=== PATIENT | male | born 1975 | race Caucasian/White ===

== ENCOUNTER 2021-08-18 13:23 | Emergency (ER) | payer OTHER ==
[2021-08-18 17:39] LABS: BASOPHIL 0.5 % (0-2); EOSINOPHIL 1.6 % (0-5); HCT 39.8 % (42.0-52.0); HGB 13.6 g/dl (13.2-18.0); LYMPHOCYTE 24.6 % (15-48); MCH 36.9 pg (25.0-31.0); MCHC 34.2 g/dL (32.0-36.0); MCV 107.9 fL (78.0-100.0); MONOCYTE 8.2 % (0-12); MPV 10.8 fL (6.0-9.5); NEUTROPHIL 64.8 % (41-80); NRBC 0; PLT 107 K/uL (150-400); RBC 3.69 M/uL (4.70-6.00); RDW 12.9 % (11.5-14.0); WBC 5.7 K/uL (4.0-10.5)
[2021-08-18 18:02] LABS: ALBUMIN 2.7 g/dL (3.4-5.0); BILIRUBIN - TOTAL 5.8 mg/dL (0.2-1.0); BUN/CREAT RATIO (CALC) 13.3 RATIO; CREATININE 0.3 mg/dL (0.67-1.17); GLOBULIN (CALCULATION) 5.3 g/dL; POTASSIUM 3.5 mmol/L (3.5-5.1)
[2021-08-18 20:16] LABS: INR 1.39 (0.9-1.2); PROTHROMBIN TIME 16.4 SECONDS (11.8-13.4); PTT 33.4 SECONDS (24.4-34.7)
[2021-08-18 21:28] LABS: BILIRUBIN 1+ mg/dL (NEGATIVE); BLOOD TRACE-INTACT Ery/uL (NEGATIVE); CLARITY CLEAR (CLEAR); COLOR YELLOW (YELLOW); GLUCOSE (U) 3+ mg/dL (NORMAL); LEUKOCYTES NEGATIVE Leu/uL (NEGATIVE); NITRITE NEGATIVE (NEGATIVE); PROTEIN NEGATIVE (NEGATIVE); pH 7.5 (5.0-9.0)
[2021-08-18 21:44] LABS: BACTERIA TRACE; SQUAMOUS EPITHELIAL CELLS RARE; URINARY RBC RARE; URINARY WBC RARE
[2021-08-18 23:10] LABS: HCT 34.7 % (42.0-52.0)
[2021-08-19 05:40] LABS: HCT 34.3 % (42.0-52.0); HGB 11.7 g/dL (13.2-18.0)
[2021-08-19] MEDS ORDERED: ZOFRAN4 M1 PO (09:17)
[2021-08-19] MEDS ORDERED: NORCO 5-325 TA1 EACH PO (09:17)
[2021-08-19] MEDS ORDERED: LIDOCAINE 5% P1 EACH TOP (09:21)
== END 2021-08-19 05:42 | disposition home or self-care (01) ==
LOC: FER 13:23
PROVIDERS: Nurse Practitioner Family
DX: S22.42XA Multiple fractures of ribs, left side, initial encounter for closed fracture (principal); K66.1 Hemoperitoneum; E11.9 Type 2 diabetes mellitus without complications; I10 Essential (primary) hypertension; F17.210 Nicotine dependence, cigarettes, uncomplicated; Z20.822 Contact with and (suspected) exposure to COVID-19; V00-Y99 External causes of morbidity
CPT/HCPCS: 36415; 71101; 80053; 81001; 82150; 83690; 85014; 85018; 85025; 85610; 85730; 86850; 86900; 86901; G0480; J1170; J2270; J2405; J7030; Q9967; U0002

== ENCOUNTER 2021-10-10 15:43 | Emergency (ER) | payer OTHER ==
[~2021-10-10 15:43] MED LIST: LIDOCAINE 5% P1 EACH TOP; NORCO 5-325 TA1 EACH PO; ZOFRAN4 M1 PO
[2021-10-10 17:11] LABS: BASOPHIL 0.3 % (0-2); EOSINOPHIL 0.3 % (0-5); HCT 39.7 % (42.0-52.0); HGB 13.6 g/dl (13.2-18.0); LYMPHOCYTE 20.6 % (15-48); MCH 36.8 pg (25.0-31.0); MCHC 34.3 g/dL (32.0-36.0); MCV 107.3 fL (78.0-100.0); MONOCYTE 8.9 % (0-12); MPV 11.5 fL (6.0-9.5); NEUTROPHIL 69.6 % (41-80); NRBC 0; RDW 12.6 % (11.5-14.0); WBC 3.5 K/uL (4.0-10.5)
[2021-10-10 17:30] LABS: PLT 67 K/uL (150-400)
[2021-10-10 17:54] LABS: ALBUMIN 2.6 g/dL (3.4-5.0); BILIRUBIN - TOTAL 4.3 mg/dL (0.2-1.0); BUN/CREAT RATIO (CALC) 7.7 RATIO; CREATININE 0.39 mg/dL (0.67-1.17); GLOBULIN (CALCULATION) 5.3 g/dL; POTASSIUM 3.8 mmol/L (3.5-5.1); TOTAL PROTEIN 7.9 g/dL (6.4-8.2)
[2021-10-10 18:08] LABS: BILIRUBIN NEGATIVE (NEGATIVE); BLOOD TRACE-INTACT Ery/uL (NEGATIVE); CLARITY CLEAR (CLEAR); COLOR YELLOW (YELLOW); GLUCOSE (U) 3+ mg/dL (NORMAL); LEUKOCYTES NEGATIVE Leu/uL (NEGATIVE); NITRITE NEGATIVE (NEGATIVE); PROTEIN NEGATIVE (NEGATIVE); SPECIFIC GRAVITY 1.015 (1.001-1.030); UROBILINOGEN 0.2 mg/dL (0.2-1.0)
[2021-10-10 18:23] LABS: BACTERIA TRACE
[2021-10-10 21:14] LABS: INR 1.34 (0.9-1.2); PROTHROMBIN TIME 15.9 SECONDS (11.8-13.4)
== END 2021-10-10 21:20 | disposition home or self-care (01) ==
LOC: FER 15:43
PROVIDERS: Physician Assistant
DX: U07.1 COVID-19 (principal); K74.60 Unspecified cirrhosis of liver; K76.89 Other specified diseases of liver; E11.9 Type 2 diabetes mellitus without complications; F17.210 Nicotine dependence, cigarettes, uncomplicated
CPT/HCPCS: 36415; 71045; 80053; 81001; 84484; 85025; 85610; 93005; Q9967

== ENCOUNTER 2021-12-01 15:00 | Emergency (ER) | payer OTHER | END 2021-12-01 16:48 | disposition home or self-care (01) | LOC: FER 15:00 | DX: S63.92XA Sprain of unspecified part of left wrist and hand, initial encounter (principal); S20.20XA Contusion of thorax, unspecified, initial encounter; W01.0XXA Fall on same level from slipping, tripping and stumbling without subsequent striking against object, initial encounter; Y92.009 Unspecified place in unspecified non-institutional (private) residence as the place of occurrence of the external cause | CPT/HCPCS: 71101; 73130; J0153 ==

== ENCOUNTER 2022-02-10 13:57 | Emergency (ER) | payer OTHER ==
[2022-02-10 15:48] LABS: BASOPHIL 0.3 % (0-2); EOSINOPHIL 1.4 % (0-5); HCT 37.1 % (42.0-52.0); HGB 12.7 g/dl (13.2-18.0); LYMPHOCYTE 27.7 % (15-48); MCH 37.2 pg (25.0-31.0); MCHC 34.2 g/dL (32.0-36.0); MCV 108.8 fL (78.0-100.0); MONOCYTE 9.2 % (0-12); MPV 11.1 fL (6.0-9.5); NEUTROPHIL 61.1 % (41-80); NRBC 0; PLT 65 K/uL (150-400); RBC 3.41 M/uL (4.70-6.00); RDW 12.7 % (11.5-14.0); WBC 3.5 K/uL (4.0-10.5)
[2022-02-10 15:55] LABS: ALBUMIN 2.8 g/dL (3.4-5.0); BILIRUBIN - TOTAL 5.9 mg/dL (0.2-1.0); BUN/CREAT RATIO (CALC) 14.3 RATIO; CREATININE 0.42 mg/dL (0.67-1.17); GLOBULIN (CALCULATION) 4.5 g/dL; POTASSIUM 3.7 mmol/L (3.5-5.1); TOTAL PROTEIN 7.3 g/dL (6.4-8.2)
== END 2022-02-10 17:46 | disposition home or self-care (01) ==
LOC: FER 13:57
PROVIDERS: Nurse Practitioner Family
DX: R10.32 Left lower quadrant pain (principal); R73.9 Hyperglycemia, unspecified; J44.9 Chronic obstructive pulmonary disease, unspecified; Z28.310 Unvaccinated for COVID-19
CPT/HCPCS: 36415; 70450; 80053; 82140; 85025; 93971; J7030

== ENCOUNTER 2022-03-12 08:16 | Emergency (ER) | payer OTHER ==
[2022-03-12 09:10] LABS: BASOPHIL 0.2 % (0-2); EOSINOPHIL 0.7 % (0-5); HCT 35.3 % (42.0-52.0); HGB 12.4 g/dl (13.2-18.0); LYMPHOCYTE 16.7 % (15-48); MCH 36.9 pg (25.0-31.0); MCHC 35.1 g/dL (32.0-36.0); MCV 105.1 fL (78.0-100.0); MPV 10.8 fL (6.0-9.5); NRBC 0; RBC 3.36 M/uL (4.70-6.00); WBC 4.6 K/uL (4.0-10.5)
[2022-03-12 09:32] LABS: BUN/CREAT RATIO (CALC) 15.6 RATIO; CREATININE 0.32 mg/dL (0.67-1.17); POTASSIUM 3.5 mmol/L (3.5-5.1)
[2022-03-12 09:53] LABS: PLT 64 K/uL (150-400)
[2022-03-12] MEDS ORDERED: PREDNISONE 20MG20 MG PO (10:30)
[2022-03-12] MEDS ORDERED: AZITHROMYCIN250 MG PO (10:30)
== END 2022-03-12 10:44 | disposition home or self-care (01) ==
LOC: FER 08:16
PROVIDERS: Emergency Medicine
DX: J44.1 Chronic obstructive pulmonary disease with (acute) exacerbation (principal); E11.9 Type 2 diabetes mellitus without complications; F17.210 Nicotine dependence, cigarettes, uncomplicated; Z28.310 Unvaccinated for COVID-19; Z20.822 Contact with and (suspected) exposure to COVID-19
CPT/HCPCS: 36415; 71046; 80048; 85025; U0002